=== PATIENT | male | born 1955 | race Caucasian/White ===

== ENCOUNTER → 2018-01-05 | Outpatient (CLI) | payer BC ==
--- NOTE | 2018-01-05 15:13 | RAD ---
MR#: [id number] Date of Study: 01/05/2018 Ordering Physician: JOHNNY BATES, Referring Physician: LIA LAGUNAS Tech: HARLEY Valles APPROVED REPORT Test Type: Exercise Stress Nurse/Tech: HARLEY Valles Test Indications: Syncope Cardiac History: none Medications: see EHR see EHR Medical History: see EHR Resting ECG: Sinus bradycardia no acute abnormalities Resting Heart Rate: 83 bpm Resting Blood Pressure: 137/76mmHg Pretest Chest Pain: None Nurse/Tech Notes Consent: The procedure was explained to the patient in lay terms. Informed consent was witnessed. James eout was entered into [employer]. History and Stress Test performed by HARLEY Valles POST EXERCISE Reason for Termination: Reached target heart rate Target HR: 138 Max HR: 151 bpm Exercise duration: 9:59 min:sec, Stage Max Blood Pressure: 170/78mmHg Blood Pressure response to exercise: Normal blood pressure response during stress. Chest Pain: No. INTERPRETATION Stress EKG Conclusion: Baseline EKG showed sinus rhythm. No ischemic changes at peak stress. Ectopi c atrial rhythm and PAC's noted without any other arrhythmias. Imaging Protocol IMAGE PROTOCOL: Rest Tc-99m/stress Tc-99m 1 day Rest: Stress: Viability: Radiopharm.Tc99m [id number] Sestamibi Dose12.8mCi 35.1mCi Duration 17min. 12min. Img Date 01/05/2018 01/05/2018 Inj-Img [id number]. 60min. Post-Injection Exercise: 1 minute Rest Admin Site:IV - Right AntecubitalAdministrator: HARLEY Valles Stress Admin Site: IV - Right AntecubitalAdministrator: HARLEY Valles STRESS DATA End Diast. Vol.118.0mlAv. Heart Rate66.0bpm LVEDV index BSA2.0mlCardiac Output0.1L/min End Syst. Vol.36.0mlCO Index BSA5.4L/min LVESV index BSA1.0mlMyocardial Htqi655.0g Eject. Emupzlis95.0% Stress Rates Pk. Fill Rate2.69EDV/secLVtime Pk. Fill 119.61msec Pk. Empty Rate3.32ESV/secLVtime Pk. Deuvf735.08msec 1/3 Pk. Fill1.93EDV/sec Stress Scores Regional WT0.00Summed WT1.00 Regional WM0.00Summed WM1.00 Study quality was good. Left Ventricular size was Normal at Rest and Stress. Lung uptake was . Left Ventricular ejection fraction is 69%. The rest and stress images show normal perfusion, normal contraction and thickening. LV Perf. Quant 17 Seg. SSS13.00 17 Seg. SRS18.00 17 Seg. SDS2.00 Stress Defect Extent (% LAD)6.30Rest Defect Extent (% LAD)14.40Rev. Defect Extent (% LAD)0.00 Stress Defect Extent (% LCX) 72.50Rest Defect Extent (% LCX)71.30Rev. Defect Extent (% LCX)0.00 Stress Defect Extent (% RCA)21.10Rest Defect Extent (% RCA)4.40Rev. Defect Extent (% RCA)2.20 Stress Defect Extent (% AURY)28.50Rest Defect Extent (% AURY)27.60Rev. Defect Extent (% AURY)0.40 Conclusion 1. Treadmill exercise cardioisotope stress test did not show any evidence of ischemia or infarct. 2. Normal left ventricular systolic function with ejection fraction calculated at 69%. 3. Low risk for cardiac events. Signed by : Alex Manriquez, Electronically Approved : 01/05/2018 15:13:07
== END | disposition home or self-care (01) ==
LOC: NM 07:27
PROVIDERS: ATTEND Internal Medicine Cardiovascular Disease
DX: R07.9 Chest pain, unspecified (principal); R55 Syncope and collapse
CPT/HCPCS: 78452; 93017; 96374; 96375; 96376; A9500